=== PATIENT | male | born 1945 | race Caucasian/White ===

== ENCOUNTER 2020-05-19 10:45 | Day surgery (SDC) | payer MEDICARE ==
[~2020-05-19] VITALS: Ht 182.9 cm; Wt 91.6 kg
[~2020-05-19 10:45] MED LIST: ACET325 PO; ACET500 PO; ALBU90OI; ASPI81CH PO; ATOR40TA PO; Aspir 8181 MG PO; Buspirone HCl15 MG PO; CITA20 PO; CLON.1 PO; DOCU100 PO; FURO40 PO; IPRAT-ALBUT 0.5-3 ML; ISOMON20 PO; LEVSOD100 PO; LISI5 PO; Lisinopril-Hct1 EAC4 PO; MELO7.5 PO; METO25 PO; Nitrostat0.3 MG; OXYC5 PO; Omeprazole20 M1 PO; POTCHL10ER PO; Prozac20 MG PO; Prozac40 MG; SIMV10 PO; Synthroid112 MCG PO
== END 2020-05-19 12:50 | disposition home or self-care (01) ==
LOC: ORSCSDS 10:45
PROVIDERS: Internal Medicine Gastroenterology
PROC: 0D5H8ZZ Destruction of Cecum, Via Natural or Artificial Opening Endoscopic (ICD-10-PCS; principal; 2020-05-19 12:00)
PROC: 0D5K8ZZ Destruction of Ascending Colon, Via Natural or Artificial Opening Endoscopic (ICD-10-PCS; principal; 2020-05-19 12:00)
PROC: 0DBN8ZX Excision of Sigmoid Colon, Via Natural or Artificial Opening Endoscopic, Diagnostic (ICD-10-PCS; principal; 2020-05-19 12:00)
PROC: 0DBL8ZX Excision of Transverse Colon, Via Natural or Artificial Opening Endoscopic, Diagnostic (ICD-10-PCS; principal; 2020-05-19 12:00)
DX: K59.00 Constipation, unspecified (principal); D12.5 Benign neoplasm of sigmoid colon; D12.3 Benign neoplasm of transverse colon; Q27.30 Arteriovenous malformation, site unspecified; K57.30 Diverticulosis of large intestine without perforation or abscess without bleeding; K64.8 Other hemorrhoids; I10 Essential (primary) hypertension; I25.10 Atherosclerotic heart disease of native coronary artery without angina pectoris; E03.9 Hypothyroidism, unspecified; N18.9 Chronic kidney disease, unspecified; Z79.899 Other long term (current) drug therapy; Z79.82 Long term (current) use of aspirin; Z87.891 Personal history of nicotine dependence
CPT/HCPCS: 88305; J2704; J7120

== ENCOUNTER 2020-07-12 09:03 | Day surgery (SDC) | payer MEDICARE ==
[~2020-07-12] VITALS: Ht 182.9 cm; Wt 90.0 kg
--- NOTE | 2020-07-12 14:15 | NUR ---
PT BROUGHT TO RECOVERY IN SUPINE POSITION ON GURNEY, LEFT GROIN SITE PREVIOUSLY WITH MANUAL PRESSURE HOLD DUE TO UNSUCCESSFUL ANGIOSEAL. NO ACTIVE EXTERNAL BLEEDING OR OOZING NOTED. DRESSING C/D/I. GROIN APPEARS PUFFY BUT SOFT AND NO PAIN REPORTED. CALL LIGHT IN REACH. WILL CONTINUE TO MONITOR.
--- NOTE | 2020-07-12 14:54 | NUR ---
LEFT GROIN SITE APPEARS TO BE MORE FIRM TO PALPATE, PT TENDER TO TOUCH. NO EXTERNAL BLEEDING NOTED. DRESSING TO ARTERIAL SITE STILL INTACT. FEMSTOP PLACED ON PT AT THIS TIME, PLAN TO MONITOR SITE UNTIL SOFT. SBP AT 100 FEMSTOP PLACED AT 110.
--- NOTE | 2020-07-12 15:05 | NUR ---
FEMSTOP RECHECK COMPLETED, REMAINS IN PLACE, WILL CONTINUE TO MONITOR SITE. PT TOLERATING WITH NO DIFFICULTIES OR C/O PAIN. URINAL USED FOR URINE OUTPUT OF 50 CC, CLEAR YELLOW.
--- NOTE | 2020-07-12 15:15 | NUR ---
FEMSTOP REMOVED FROM LEFT GROIN SITE, SOFT NON TENDER WITH NO SIGNS OF EXTERNAL BLEEDING AT THIS TIME. PT AOX4. DENIES WANTING FOOD OR DRINK, MEAL TRAY PROVIDED ON BEDSIDE TABLE. VSS. CALL LIGHT IN REACH.
--- NOTE | 2020-07-12 16:33 | NUR ---
LEFT GROIN SITE CONTINUES TO FEEL SOFT, NO EXTERNAL BLEEDING OR OOZING NOTED. DRESSING REMAINS C/D/I. PT DENIES PAIN. LEFT DP PULSE +1 LEFT PT DOPPLER AND RIGHT DP/PT BOTH DOPPLER.
--- NOTE | 2020-07-12 17:05 | NUR ---
ASSUMED CARE OF PATIENT. GROIN SITE HAS HEMATOMA THAT CAN BE WORKED OUT.
--- NOTE | 2020-07-12 17:40 | NUR ---
HEMATOMA CONTINUES. SITE ASSESSED BY February. DR. SCHAEFFER NOTIFIED.
--- NOTE | 2020-07-12 17:46 | NUR ---
FEMSTOP APPLIED PER DR. SCHAEFFER'S ORDER,140 MM/HG.
--- NOTE | 2020-07-12 18:13 | NUR ---
SITE IS SOFT. FEMSTOP IS ON AT 130MM/HG.
--- NOTE | 2020-07-12 18:51 | NUR ---
TRANSFERRED TO ICU 7 VIA GURNEY. FEMSTOP OFF WHILE TRANSFERRING TO BED THEN INFLATED TO 130 MM/HG.
--- NOTE | 2020-07-12 18:56 | NUR ---
GROIN SITE SOFT BUT HEMATOMA STARTS WHEN FEMSTOP OFF. RE-APPLIED WITH NO PRESSURE.
--- NOTE | 2020-07-12 21:15 | NUR ---
DOCTOR MAKSIM NOTIFIED OF HYPOTENSION, AND DOPPLER PULSES TO BOTH FEET. FLUID BOLUS AND STAT H&H ORDERED. PATIENT AWAKE WITH NO C/O PAIN, LEFT GROIN SITE SOFT BUT BRUISED.
[2020-07-12 21:46] LABS: Hematocrit 34.5 % (37.0-53.0)
--- NOTE | 2020-07-13 00:41 | NUR ---
DOCTOR MAKSIM IN TO SEE PATIENT, NO CHANGES AT THIS TIME. CONTINUE TO MONITOR
--- NOTE | 2020-07-13 04:29 | NUR ---
REPORT RECEIVED FROM [facility] NURSE, THERESE FREEMAN. PT ADMITTED TO ICU FOR EXTENDED RECOVERY DUE TO INTERMITTENT FEMORAL SITE BLEEDING SECONDARY TO FAILED ANGIOSEAL. PT IN [place]SE [place]. A&O X 4. PMS X 4. LE PULSES VIA DOPPLER. HEENT-NORMOCEPHALIC. LSCTA. ABD SOFT, NON-TENDER. L FEMSTOP IN PLACE c NO PRESSURE. SITE ASSESSED WITH THERESE. NO C/O PAIN CURRENTLY. PT ADVISED TO AVOID GROIN FLEXATION. FREQUENT REMINDERS TO KEEP HEAD ON PILLOW. PT VERBALIZED UNDERSTANDING. FEMORAL SITE WILL BE MONITORED FREQUENTLY.
--- NOTE | 2020-07-13 06:45 | NUR ---
SHIFT SUMMARY A&O X 4. PMS X 4, LE PULSES VIA DOPPLER. L FEMSTOP REMOVED ~2300. GROIN SITE REMAINS SOFT, NO CHANGES TO VISIBLE BRUISING. PT ANXIOUS TO GO HOME.
--- NOTE | 2020-07-13 08:43 | NUR ---
ASSUMED CARE OF PT AT 0700. REPORT FROM SUMAYA FREEMAN. PT RESTING IN BED. A&OX 4. ANSWERS QUESTIONS APPROPRIATELY. DENIES NEEDS. DENIES PAIN. OPSITE c CHG TO LEFT GROIN. SOFT, NON TENDER, ECCHYMOSIS. CAP REFILL <3 SEC TO BILATERAL LOWER EXT. PULSES PAL. VSS. PT PENDING D/C. WILL CONTINUE TO MONITOR.
--- NOTE | 2020-07-13 11:47 | NUR ---
PT D/C'D. VERBALIZED UNDERSTANDING OF D/C INSTRUCTIONS. DRESSING TO LEFT GROIN REMAINED C/D/I. NO FURTHER BRUISING OR SWELLING. ALL BELONGINGS HOME c PT. OTD NAD.
== END 2020-07-13 11:48 | disposition home or self-care (01) ==
LOC: MHTC 09:03 → ICUE 18:04 → MHTC 07-13 11:48
PROVIDERS: Radiology Diagnostic Radiology
DX: I70.213 Atherosclerosis of native arteries of extremities with intermittent claudication, bilateral legs (principal); E78.5 Hyperlipidemia, unspecified; J44.9 Chronic obstructive pulmonary disease, unspecified; I12.9 Hypertensive chronic kidney disease with stage 1 through stage 4 chronic kidney disease, or unspecified chronic kidney disease; N18.9 Chronic kidney disease, unspecified; E66.3 Overweight; E03.9 Hypothyroidism, unspecified; Z68.28 Body mass index [BMI] 28.0-28.9, adult; I65.23 Occlusion and stenosis of bilateral carotid arteries; I25.10 Atherosclerotic heart disease of native coronary artery without angina pectoris; Z95.5 Presence of coronary angioplasty implant and graft; Z87.891 Personal history of nicotine dependence; Z79.82 Long term (current) use of aspirin; Z79.899 Other long term (current) drug therapy
CPT/HCPCS: 36415; 76937; 85014; 85018; 85347; 99152; 99153; A9270-GY; C1714; C1725; C1757; C1760; C1769; C1874; C1884; C1887; C1894; C2623; J1200; J1644; J2250; J3010; J7030; J7040; J7050; Q9967

== ENCOUNTER 2020-07-21 07:37 | Day surgery (SDC) | payer MEDICARE ==
[~2020-07-21] VITALS: Ht 182.9 cm; Wt 92.0 kg
[2020-07-21] MEDS ORDERED: ACET500 PO (08:07)
[2020-07-21] MEDS ORDERED: IPRAT-ALBUT 0.5-3 ML INH (08:09)
--- NOTE | 2020-07-21 12:05 | NUR ---
PT TO RECOVERY ROOM POST PROCEDURE. PT AWAKE AND ORIENTED, CONVERSING APPROPRIATELY; DENIES PAIN POST PROCEDURE. MONITOR SR 60'S, B/P 120/66, SPO2 97-99% RA, AFEBRILE. R GROIN NO SWELLING/HEMATOMA, TEGADERM DRSG INTACT, PERCLOSE DEPLOYED; BLE PULSES 1+.
--- NOTE | 2020-07-21 14:20 | NUR ---
PT'S HOB ELEVATED, SITES UNCHANGED. PT TAKING SIPS OF COFFEE, OFFERED LUNCH TRAY, REPORTS HE'S NOT HUNGRY.
--- NOTE | 2020-07-21 15:05 | NUR ---
PT AMB TO BATHROOM AND VOIDED WITHOUT ISSUE, GAIT STEADY; SITE UNCHANGED.
--- NOTE | 2020-07-21 15:20 | NUR ---
TO DRESSED SELF WITHOUT ISSUE, SITE UNCHANGED; IV REMOVED-CANNULA INTACT. PT RECEIVED DISCHARGE INSTRUCTIONS, MED LIST AND AFTER CARE INSTRUCTIONS; VERBALIZED GOOD UNDERSTANDING.
--- NOTE | 2020-07-21 15:25 | NUR ---
PT LEFT FACILITY VIA W/C, CONDITION STABLE.
== END 2020-07-21 15:25 | disposition home or self-care (01) ==
LOC: MHTC 07:37
DX: I70.213 Atherosclerosis of native arteries of extremities with intermittent claudication, bilateral legs (principal)
CPT/HCPCS: 75710; 85347; 99152; 99153; C1714; C1725; C1757; C1760; C1769; C1884; C1887; C1894; C2623; C9764; C9766; J1644; J2250; J3010; J7030; J7040; J7050; Q9967

== ENCOUNTER 2023-06-25 07:03 | Day surgery (SDC) | payer MEDICARE ==
[~2023-06-25] VITALS: Ht 182.9 cm; Wt 88.5 kg
[2023-06-25] VITALS (11 sets, daily range): BP systolic 118–155; BP diastolic 63–101
[~2023-06-25 07:03] MED LIST changes: +CLOP75 PO; +IPRAT-ALBUT 0.5-3 ML INH; +METO50ER PO
[2023-06-25] MEDS ORDERED: ATOR20 PO (07:50)
[2023-06-25] MEDS ORDERED: LEVSOD112 PO (07:51)
[2023-06-25] MEDS ORDERED: NYSTRIT TOP (07:51)
[2023-06-25] MEDS ORDERED: Prozac40 MG PO (07:51)
--- NOTE | 2023-06-25 11:20 | NUR ---
ASSUMED CARE OF PT POST PROCEDURE. PT AWAKE AND CONVERSING APPROPRIATELY; DENIES PAIN POST PROCEDURE. MONITOR SB/SR 50-60'S, B/P 133/72, SPO2 99-100% RA, AFEBRILE. L GROIN NO SWELLING/HEMATOMA, TEGADERM DRSG INTACT; ANGIO SEAL DEPLOYED, PULSES LLE: DOP X 2, RLE: DP 1+ PT DOP.
--- NOTE | 2023-06-25 12:35 | NUR ---
PT'S HOB ELEVATED, L GROIN SITE REMAINS UNCHANGED.
--- NOTE | 2023-06-25 13:35 | NUR ---
PT AMB TO BATHROOM WITHOUT ISSUE, GAIT STEADY, SITE UNCHANGED.
--- NOTE | 2023-06-25 13:50 | NUR ---
PT DRESSED SELF WITHOUT ISSUE, SITE UNCHANGED; IV REMOVED-CANNULA INTACT.
--- NOTE | 2023-06-25 14:06 | NUR ---
PT RECEIVED DISCHARGE INSTRUCTIONS, MED LIST AND AFTER CARE INSTRUCTIONS; VERBALIZED GOOD UNDERSTANDING. PT LEFT FACILITY VIA W/C, CONDITION STABLE.
== END 2023-06-25 14:06 | disposition home or self-care (01) ==
LOC: MHTC 07:03
DX: I70.223 Atherosclerosis of native arteries of extremities with rest pain, bilateral legs (principal); I65.23 Occlusion and stenosis of bilateral carotid arteries; Z87.891 Personal history of nicotine dependence; I10 Essential (primary) hypertension
CPT/HCPCS: 37228; 75625; 75716; 75774; 76937; 85347; 99152; 99153; C1725; C1760; C1769; C1887; C1894; C9764; C9772; J1644; J2250; J3010; J7030; J7050; Q9967

== ENCOUNTER 2023-08-27 07:03 | Day surgery (SDC) | payer MEDICARE ==
[2023-08-27] VITALS (8 sets, daily range): BP systolic 101–143; BP diastolic 65–82
[~2023-08-27] VITALS: Ht 182.9 cm; Wt 87.1 kg
[~2023-08-27 07:03] MED LIST changes: +ATOR20 PO; +LEVSOD112 PO; +NYSTRIT TOP; +Prozac40 MG PO
--- NOTE | 2023-08-27 09:47 | NUR ---
PATIENT ARRIVED TO RECOVERY ROOM RESTING COMFORTABLY IN BED. HOB FLAT. R GROIN SITE C/D/I SOFT/NONTENDER, NO EVIDNECE OF HEMATOMA. PATIENT DENYING ANY PAIN. VSS ON RA.
--- NOTE | 2023-08-27 12:00 | NUR ---
PT VERBALIZES UNDERSTANDING WRITTEN AND VERBAL INSTRUCTIONS. DENIES QUESTIONS. VSS. NADN. PT R FEMORAL SITE REMAINS CLEAR. NO BLEEDING OR HEMATOMA NOTED. PT AMBULATES TO RESTROOM WITHOUT DIFF. PT DRESSES SELF WITHOUT ASSISTANCE. PT IV DC'D. CATH INTACT. PRESSURE DSG IN PLACE. NO BLEEDING NOTED. PT DC TO HOME VIA WC BY FRIEND.
== END 2023-08-27 12:10 | disposition home or self-care (01) ==
LOC: MHTC 07:03
DX: I70.222 Atherosclerosis of native arteries of extremities with rest pain, left leg (principal); I70.209 Unspecified atherosclerosis of native arteries of extremities, unspecified extremity; M79.605 Pain in left leg; I65.22 Occlusion and stenosis of left carotid artery; I65.21 Occlusion and stenosis of right carotid artery; Z87.891 Personal history of nicotine dependence
CPT/HCPCS: 76937; 85347; 99152; 99153; C1725; C1760; C1769; C1887; C1894; C2623; J1644; J2250; J3010; J7030; J7050; Q9967

== ENCOUNTER → 2024-11-24 | Outpatient (CLI) | payer MEDICARE | LOC: LAB 18:24 → LAB SHORT 18:24 | DX: B35.6 Tinea cruris (principal) | CPT/HCPCS: 87252 ==

== ENCOUNTER 2025-01-28 07:57 | Day surgery (SDC) | payer MEDICARE ==
[~2025-01-28] VITALS: Ht 182.9 cm; Wt 94.0 kg
[2025-01-28] VITALS (7 sets, daily range): BP systolic 102–136; BP diastolic 64–87
[~2025-01-28 07:57] MED LIST changes: +CENTRUM SILVER1 EAC2 PO; +Heparin Sodium 1000 Units/ML 10ML MDV ONE; +NS 1,000 ML IV ONE; +NS 250 ML IV ONE
[2025-01-28] MEDS ORDERED: NS 1,000 ML IV ONE (08:35)
[2025-01-28] MEDS ORDERED: FentaNYL Citrate 50 MCG/ML 2 ML Injection ONE (08:35)
[2025-01-28] MEDS ORDERED: Midazolam HCl 1MG / ML 2ML Vial ONE (08:35)
[2025-01-28] MEDS ORDERED: Clopidogrel Bisulfate 75 MG Tab ONE (08:49)
--- NOTE | 2025-01-28 10:52 | NUR ---
PATIENT RETURNED FROM PROCEDURE EARLIER, SITE RIGHT GROIN INTACT, NO HEMATOMA, NO CONCERNS, GOOD PULSES DISTAL/PROXIMAL TO SITE, DENIES CONCERN, DISCUSS PLAN, LAY FLAT FOR AN HOUR AND COMPLIANT EXCEPT DOES LIFT HEAD FROM PILLOW TO TALK, REMINDERS TO LAY FLAT, KEEP HEAD DOWN. OTHERWISE RESTING, DECLINED FOOD, LIGHTS LOW FOR COMFORT.
--- NOTE | 2025-01-28 11:23 | NUR ---
PATIENT RESTING, BEGAN TO ELEVATE HOB, SITE REMAINS INTACT, NO ACUTE ISSUES OR CONCERNS. VS REAMIN STABLE, BP REMAINS IMPROVED FROM INTRAOP HYPOTENSION CONCERNS, OTHERWISE MONITORING.
--- NOTE | 2025-01-28 12:36 | NUR ---
SITE INTACT, AMBULATED TO RESTROOM, SITE REMAINED INTACT, IV REMOVED, OFF MONITOR, BELONGINGS GATHERED, PATIENT DRESSED. DISCUSSED D/C INSTRUCTIONS AND RESUMING MEDICATIONS, CALLING 9-1-1 IF UNABLE TO CONTROL BLEED, DENIES QUESTIONS/CONCERNS, TAKEN BY WHEELCHAIR TO PATIENT WAIT AREA, FRIEND ON WAY, REQUEST TO SIT THERE, LEFT AT 1230.
== END 2025-01-28 12:30 | disposition home or self-care (01) ==
LOC: MHTC 07:57
DX: I25.810 Atherosclerosis of coronary artery bypass graft(s) without angina pectoris (principal); R94.39 Abnormal result of other cardiovascular function study; I73.9 Peripheral vascular disease, unspecified; J44.9 Chronic obstructive pulmonary disease, unspecified; I10 Essential (primary) hypertension; E78.5 Hyperlipidemia, unspecified; Z79.82 Long term (current) use of aspirin; Z79.899 Other long term (current) drug therapy
CPT/HCPCS: 76937; 93459; 99152; 99153; A9270; C1760; C1769; C1894; J1644; J2250; J3010; J7030; J7050; Q9967

== ENCOUNTER 2025-03-08 13:31 | Day surgery (SDC) | payer MEDICARE ==
[~2025-03-08] VITALS: Ht 182.9 cm; Wt 93.3 kg
[~2025-03-08 13:31] MED LIST changes: +Atropine Sulfate 0.1 MG/ML 10ML SYR ONE; +Glycopyrrolate 0.2 MG/ML 1MLVIAL ONE; -Heparin Sodium 1000 Units/ML 10ML MDV ONE; +Lactated Ringer's 1,000 ML IV ONE; +Lidocaine 2% 5 ML SDV ONE; +Lidocaine HCl/Pf 1% 5 ML VIAL ONE; +Methylene Blue 1% 100 MG/10 ML VIAL ONE; -NS 1,000 ML IV ONE; -NS 250 ML IV ONE; +Ondansetron HCl 2 MG / ML 2ML Vial ONE; +ePHEDrine Sulfate 50 MG/ML 1ML Injection ONE
[2025-03-08] MEDS ORDERED: FAMO20 (14:23)
[2025-03-08] MEDS ORDERED: Benzocaine Oral Spray 0.5ML UD ONE (15:06)
[2025-03-08] MEDS ORDERED: propofoL 20 ML IV ONE (15:06)
[2025-03-08] MEDS ORDERED: propofoL 50 ML IV ONE (15:06)
[2025-03-08] MEDS ORDERED: Lactated Ringer's 1,000 ML IV ONE (15:25)
--- NOTE | 2025-03-08 15:55 | NUR ---
03/08/25 1555 VEE ARRIOLA PER PROVIDER PREFERENCES, A NASAL CANNULA WAS USED DURING THE UPPER ENDOSCOPY AND THEN A POM MASK WAS PLACED PRIOR TO BEGINNING THE COLON OSCOPY
[2025-03-08 16:27] VITALS: BP 103/60
== END 2025-03-08 16:36 | disposition home or self-care (01) ==
LOC: ORSCSDS 13:31
PROVIDERS: Specialist
PROC: 0D758ZZ Dilation of Esophagus, Via Natural or Artificial Opening Endoscopic (ICD-10-PCS; principal; 2025-03-08 15:00)
PROC: 0DB58ZX Excision of Esophagus, Via Natural or Artificial Opening Endoscopic, Diagnostic (ICD-10-PCS; principal; 2025-03-08 15:00)
PROC: 0DB78ZX Excision of Stomach, Pylorus, Via Natural or Artificial Opening Endoscopic, Diagnostic (ICD-10-PCS; principal; 2025-03-08 15:00)
PROC: 0DJD8ZZ Inspection of Lower Intestinal Tract, Via Natural or Artificial Opening Endoscopic (ICD-10-PCS; principal; 2025-03-08 15:00)
DX: K21.9 Gastro-esophageal reflux disease without esophagitis (principal); Z12.11 Encounter for screening for malignant neoplasm of colon; Z86.0101 Personal history of adenomatous and serrated colon polyps; R13.14 Dysphagia, pharyngoesophageal phase; R11.0 Nausea; K22.10 Ulcer of esophagus without bleeding; K44.9 Diaphragmatic hernia without obstruction or gangrene; L53.8 Other specified erythematous conditions; K64.8 Other hemorrhoids; K57.30 Diverticulosis of large intestine without perforation or abscess without bleeding; K55.20 Angiodysplasia of colon without hemorrhage; I25.10 Atherosclerotic heart disease of native coronary artery without angina pectoris; I73.89 Other specified peripheral vascular diseases; Z87.891 Personal history of nicotine dependence; E03.9 Hypothyroidism, unspecified; J44.9 Chronic obstructive pulmonary disease, unspecified; I10 Essential (primary) hypertension; Z79.02 Long term (current) use of antithrombotics/antiplatelets; Z79.82 Long term (current) use of aspirin; Z99.81 Dependence on supplemental oxygen; Z79.899 Other long term (current) drug therapy
CPT/HCPCS: 43248; 43239; G0105; 88305; 88342; A9270; C1769; J0461; J2003; J2405; J2704; J7120; Q9968

== ENCOUNTER 2025-06-23 10:07 | Inpatient (IN) | payer OTHER, MEDICARE ==
[~2025-06-23] VITALS: Ht 182.9 cm; Wt 85.0 kg
[~2025-06-23 10:07] MED LIST changes: -Atropine Sulfate 0.1 MG/ML 10ML SYR ONE; +FAMO20 PO; -Glycopyrrolate 0.2 MG/ML 1MLVIAL ONE; -LEVSOD112 PO; -Lactated Ringer's 1,000 ML IV ONE; -Lidocaine 2% 5 ML SDV ONE; -Lidocaine HCl/Pf 1% 5 ML VIAL ONE; -Methylene Blue 1% 100 MG/10 ML VIAL ONE; -Ondansetron HCl 2 MG / ML 2ML Vial ONE; -ePHEDrine Sulfate 50 MG/ML 1ML Injection ONE
[2025-06-23 10:39] LABS: BASOPHILS ABSOLUTE AUTO 0.05 K/mm3 (0.00-0.23); BASOPHILS PERCENT AUTO 0 % (0-2); EOSINOPHILS ABSOLUTE AUTO 0.55 K/mm3 (0.00-0.68); EOSINOPHILS PERCENT AUTO 4 % (0-6); Hematocrit 34.3 % (37.0-53.0); Hemoglobin 11.4 g/dL (13.5-17.5); IMMATURE GRAN ABSOLUTE AUTO 0.17 K/mm3 (0.00-0.10); IMMATURE GRAN PERCENT AUTO 1 % (0-1); LYMPHOCYTES ABSOLUTE AUTO 1.83 K/mm3 (0.84-5.20); LYMPHOCYTES PERCENT AUTO 12 % (21-46); MONOCYTES ABSOLUTE AUTO 1.05 K/mm3 (0.16-1.47); MONOCYTES PERCENT AUTO 7 % (4-13); Mean Corpuscular HGB Conc 33.2 g/dL (31.5-36.5); Mean Corpuscular Volume 95 fL (80-100); NEUTROPHILS ABSOLUTE AUTO 11.91 K/mm3 (1.96-9.15); NEUTROPHILS PERCENT AUTO 77 % (41-73); NRBC ABSOLUTE 0.00 K/mm3 (0.00-0.02); NRBC Auto 0.0 /100 WBC (0.0-0.2); Platelet Count 326 K/mm3 (150-400); RDW Coefficient Variation 13.2 % (11.7-14.2); RDW Standard Deviation 46.0 fL (35.1-46.3)
[2025-06-23 11:06] LABS: Alanine Aminotransfer (ALT/SGP 84.0 U/L (12-78); Albumin, Blood 2.7 g/dL (3.4-5.0); Albumin/Globulin Ratio 0.5 (0.8-1.8); Anion Gap 14.0 mmol/L (3-11); Aspartate Aminotrans (AST/SGOT 60.0 U/L (12-37); Bilirubin, Total 1.2 mg/dL (0.1-1.0); Blood Urea Nitrogen 28.0 mg/dL (8-24); CO2, Blood 23.0 mmol/L (21-32); Calcium, Blood 9.3 mg/dL (8.5-10.1); Chloride, Blood 104.0 mmol/L (98-108); Creatinine, Blood 1.27 mg/dL (0.60-1.20); Globulin, Blood 5.1 g/dL (2.2-4.0); Glucose, Blood 114.0 mg/dL (70-99); Potassium, Blood 3.6 mmol/L (3.5-5.5); Sodium, Blood 137.0 mmol/L (136-145); Total Protein, Blood 7.8 g/dL (6.4-8.2)
[2025-06-23] MEDS ORDERED: NS 500 ML IV SCH (11:35)
[2025-06-23 15:23] LABS: Anti-Xa UFH, PHA Monitoring <0.10 IU/mL; Prothrombin Time Results 12.7 Sec (9.7-11.5)
[2025-06-23] MEDS ORDERED: Heparin Sodium,Porcine/0.5 NS 500 ML IV SCH (15:35)
[2025-06-23] MEDS ORDERED: Heparin Sodium 5000 Units/ML 1ML MDV IV ONE (15:35)
[2025-06-23 16:15] VITALS: BP 110/64
[2025-06-23] MEDS ORDERED: LATANOPROST2.5 M3 BOTHEYES (16:46)
[2025-06-23] MEDS ORDERED: NYSTATIN15 GM TOP (16:47)
--- NOTE | 2025-06-23 18:57 | NUR ---
SHIFT SUMMARY: PT ARRIVES FROM THE ED A&OX4.FOLLOWS COMMANDS AND ANSWERS QUESTIONS APPROPRIATELY. PT BECAME VERY SOB WHILE CHANGING INTO A GOWN. VSS. DENIES ANY CP, PRESSURE OR TIGHTNESS. HEPARIN GTT RUNNING. DENIES ANY NEEDS. NO SIGNIFICANT EVENTS HAPPENED SINCE ARRIVAL TO THIS UNIT. WILL CONTINUE TO CARE FOR PT TILL END OF SHIFT.
[2025-06-23 20:12] VITALS: BP 112/63
[2025-06-23 23:13] VITALS: BP 117/78
[2025-06-24] MEDS ORDERED: Dose Adjust by Pharmacy XX STA ×2 (01:28→05:51)
[2025-06-24 03:25] VITALS: BP 113/54
--- NOTE | 2025-06-24 04:51 | NUR ---
SHIFT SUMMARY THIS RN ASSUMED CARE OF PATIENT AT 1900. PT A&O X4. ABLE TO MAKE NEEDS KNOWN. [place]. ABLE TO REPOSITION SELF IN BED. USING URINAL AT BEDSIDE. ON RA WITH SPO2 >92%. BP STABLE. LOW GRADE TEMP WITH TEMP MAX OF 99.5. SR ON MONITOR WITH HR 70 S. PT REPORTED HEARTBURN DURING THIS SHIFT AND STATED THAT HE USUALLY TAKES A COUPLE TUMS IN THE MORNING AND ASKED FOR TUMS. THIS RN SPOKE TO MD JULEE MD WITH ORDERS AND GIVEN PER EMAR. PT HAS BEEN NPO SINCE MIDNIGHT FOR STRESS TEST IN AM. BED IN LOWEST POSITION AND CALL LIGHT WITHIN REACH. THIS RN WILL REPORT TO ONCOMING DAYSMSFT RN.
[2025-06-24 05:26] LABS: BASOPHILS ABSOLUTE AUTO 0.03 K/mm3 (0.00-0.23); BASOPHILS PERCENT AUTO 0 % (0-2); EOSINOPHILS ABSOLUTE AUTO 0.53 K/mm3 (0.00-0.68); EOSINOPHILS PERCENT AUTO 6 % (0-6); Hematocrit 29.5 % (37.0-53.0); Hemoglobin 9.7 g/dL (13.5-17.5); IMMATURE GRAN ABSOLUTE AUTO 0.07 K/mm3 (0.00-0.10); IMMATURE GRAN PERCENT AUTO 1 % (0-1); LYMPHOCYTES ABSOLUTE AUTO 1.18 K/mm3 (0.84-5.20); LYMPHOCYTES PERCENT AUTO 13 % (21-46); MONOCYTES ABSOLUTE AUTO 0.84 K/mm3 (0.16-1.47); MONOCYTES PERCENT AUTO 9 % (4-13); Mean Corpuscular HGB Conc 32.9 g/dL (31.5-36.5); Mean Corpuscular Volume 96 fL (80-100); NEUTROPHILS ABSOLUTE AUTO 6.53 K/mm3 (1.96-9.15); NEUTROPHILS PERCENT AUTO 71 % (41-73); NRBC ABSOLUTE 0.00 K/mm3 (0.00-0.02); NRBC Auto 0.0 /100 WBC (0.0-0.2); Platelet Count 231 K/mm3 (150-400); RDW Coefficient Variation 13.3 % (11.7-14.2); RDW Standard Deviation 46.7 fL (35.1-46.3)
[2025-06-24 06:34] LABS: Alanine Aminotransfer (ALT/SGP 71.0 U/L (12-78); Albumin, Blood 2.2 g/dL (3.4-5.0); Albumin/Globulin Ratio 0.5 (0.8-1.8); Anion Gap 13.0 mmol/L (3-11); Aspartate Aminotrans (AST/SGOT 55.0 U/L (12-37); Bilirubin, Total 1.0 mg/dL (0.1-1.0); Blood Urea Nitrogen 30.0 mg/dL (8-24); CO2, Blood 22.0 mmol/L (21-32); Calcium, Blood 8.5 mg/dL (8.5-10.1); Chloride, Blood 106.0 mmol/L (98-108); Creatinine, Blood 0.95 mg/dL (0.60-1.20); Globulin, Blood 4.3 g/dL (2.2-4.0); Glucose, Blood 92.0 mg/dL (70-99); Potassium, Blood 3.7 mmol/L (3.5-5.5); Sodium, Blood 137.0 mmol/L (136-145); Total Protein, Blood 6.5 g/dL (6.4-8.2)
[2025-06-24 07:53] VITALS: BP 108/60
[2025-06-24 11:19] VITALS: BP 101/66
[2025-06-24 15:12] VITALS: BP 125/61
--- NOTE | 2025-06-24 17:36 | NUR ---
End of Shift Pt A&O x4. KOI. VSS. Spo2 > 92% on RA. Monitor showing SR-ST. Pt denying chest pain/discomfort. Pt SBA. First day of stress test complete. Pt anticipating finishing 2nd portion of stress test tomorrow. Heparin gtt infusing per EMAR.
[2025-06-24 20:04] VITALS: BP 112/69
[2025-06-24] MEDS ORDERED: Latanoprost 0.005% Opth Soln 2.5 ML BOTHEYES SCH (21:00)
[2025-06-24 23:31] VITALS: BP 128/73
[2025-06-25 03:51] VITALS: BP 113/57
[2025-06-25 04:08] LABS: BASOPHILS ABSOLUTE AUTO 0.03 K/mm3 (0.00-0.23); BASOPHILS PERCENT AUTO 0 % (0-2); EOSINOPHILS ABSOLUTE AUTO 0.58 K/mm3 (0.00-0.68); EOSINOPHILS PERCENT AUTO 6 % (0-6); Hematocrit 28.9 % (37.0-53.0); Hemoglobin 9.6 g/dL (13.5-17.5); IMMATURE GRAN ABSOLUTE AUTO 0.07 K/mm3 (0.00-0.10); IMMATURE GRAN PERCENT AUTO 1 % (0-1); LYMPHOCYTES ABSOLUTE AUTO 1.17 K/mm3 (0.84-5.20); LYMPHOCYTES PERCENT AUTO 13 % (21-46); MONOCYTES ABSOLUTE AUTO 0.76 K/mm3 (0.16-1.47); MONOCYTES PERCENT AUTO 8 % (4-13); Mean Corpuscular HGB Conc 33.2 g/dL (31.5-36.5); Mean Corpuscular Volume 93 fL (80-100); NEUTROPHILS ABSOLUTE AUTO 6.42 K/mm3 (1.96-9.15); NEUTROPHILS PERCENT AUTO 71 % (41-73); NRBC ABSOLUTE 0.00 K/mm3 (0.00-0.02); NRBC Auto 0.0 /100 WBC (0.0-0.2); Platelet Count 237 K/mm3 (150-400); RDW Coefficient Variation 13.3 % (11.7-14.2); RDW Standard Deviation 45.4 fL (35.1-46.3)
[2025-06-25 04:33] LABS: Alanine Aminotransfer (ALT/SGP 86.0 U/L (12-78); Albumin, Blood 2.3 g/dL (3.4-5.0); Albumin/Globulin Ratio 0.5 (0.8-1.8); Anion Gap 9.0 mmol/L (3-11); Aspartate Aminotrans (AST/SGOT 65.0 U/L (12-37); Bilirubin, Total 1.1 mg/dL (0.1-1.0); Blood Urea Nitrogen 23.0 mg/dL (8-24); CO2, Blood 26.0 mmol/L (21-32); Calcium, Blood 8.7 mg/dL (8.5-10.1); Chloride, Blood 105.0 mmol/L (98-108); Creatinine, Blood 0.98 mg/dL (0.60-1.20); Globulin, Blood 4.3 g/dL (2.2-4.0); Glucose, Blood 109.0 mg/dL (70-99); Potassium, Blood 4.1 mmol/L (3.5-5.5); Sodium, Blood 136.0 mmol/L (136-145); Total Protein, Blood 6.6 g/dL (6.4-8.2)
--- NOTE | 2025-06-25 05:00 | NUR ---
SHIFT SUMMARY THIS RN ASSUMED CARE OF PATIENT AT 1900. PT A&O X4. ABLE TO MAKE NEEDS KNOWN. [place]. ABLE TO REPOSITION SELF IN BED. USING URINAL AT BEDSIDE INDEPENDENTLY. ON RA WITH SPO2 >92%. BP STABLE. AFEBRILE. SR ON MONITOR WITH HR 70S. PT REPORTED HEARTBURN EARLY THIS AM AND WAS MEDICATED PER EMAR WITH TUMS. PT HAS BEEN NPO SINCE MIDNIGHT FOR SECOND PART OF STRESS TEST IN AM. HEP GTT INFUSING PER EMAR. BED IN LOWEST POSITION AND CALL LIGHT WITHIN REACH. THIS RN WILL REPORT TO ONCTUYET DAYSHIFT RN.
[2025-06-25] MEDS ORDERED: Clarify Drug Order XX ONE (06:20)
[2025-06-25 07:05] VITALS: BP 101/62
[2025-06-25 12:09] VITALS: BP 102/88
[2025-06-25] MEDS ORDERED: METO25ER PO (13:06)
[2025-06-25] MEDS ORDERED: LEVSOD75 PO (13:06)
--- NOTE | 2025-06-25 13:34 | NUR ---
Discharge Home Pt A&O x4. VSS. Spo2 > 92% on RA. Monitor showing NSR. Pt denying CP or discomfort. Stress test complete. MD & an employee sponsor or advocate and to pt bedside following stress test. Heparin gtt dc'd per . w/ order for discharge home. Discharge instructions reviewed w/ pt & sent home w/ pt. PIVs removed. Pt taken out in wheelchair w/ belongings @ 6342.
[2025-06-26] MEDS ORDERED: Isosorbide Mononitrate 30 MG TABCR PO SCH (09:00)
== END 2025-06-25 13:20 | disposition home or self-care (01) | DRG 204 ==
LOC: ER 10:07 → PCU 14:05
PROVIDERS: Emergency Medicine; ADMIT Family Medicine
DX: R06.02 Shortness of breath (principal); I21.A1 Myocardial infarction type 2; N17.9 Acute kidney failure, unspecified; I25.10 Atherosclerotic heart disease of native coronary artery without angina pectoris; I95.9 Hypotension, unspecified; Z66 Do not resuscitate; R79.1 Abnormal coagulation profile; R74.01 Elevation of levels of liver transaminase levels; J43.9 Emphysema, unspecified; D72.829 Elevated white blood cell count, unspecified; I07.1 Rheumatic tricuspid insufficiency; D64.9 Anemia, unspecified; I73.9 Peripheral vascular disease, unspecified; E78.5 Hyperlipidemia, unspecified; Z79.02 Long term (current) use of antithrombotics/antiplatelets; Z79.82 Long term (current) use of aspirin; Z79.890 Hormone replacement therapy; Z95.1 Presence of aortocoronary bypass graft; Z87.891 Personal history of nicotine dependence
CPT/HCPCS: 36415; 71046; 71260; 78452; 80053; 83880; 84145; 84439; 84443; 84481; 84484; 85025; 85379; 85520; 85610; 85730; 93005; 93010; 93017; 93306; 94760; 96360-59; 99285-25; A9270; A9500; J0706; J1644; J2785; J7030; Q9967

== ENCOUNTER 2025-07-09 14:18 | Inpatient (IN) | payer MEDICARE ==
[~2025-07-09] VITALS: Ht 182.9 cm; Wt 80.9 kg
[~2025-07-09 14:18] MED LIST changes: +ALBU90OI INH; +ANORO ELLIPTA1 EACH INH; +LATANOPROST2.5 M3 BOTHEYES; +LEVSOD75 PO; +METO25ER PO; +NYSTATIN15 GM TOP; +PRED20 PO
[2025-07-09] MEDS ORDERED: NS 1,000 ML IV ONE (14:32)
[2025-07-09 14:33] LABS: BASOPHILS ABSOLUTE AUTO 0.05 K/mm3 (0.00-0.23); BASOPHILS PERCENT AUTO 0 % (0-2); EOSINOPHILS ABSOLUTE AUTO 0.22 K/mm3 (0.00-0.68); EOSINOPHILS PERCENT AUTO 1 % (0-6); Hematocrit 36.6 % (37.0-53.0); Hemoglobin 11.6 g/dL (13.5-17.5); IMMATURE GRAN ABSOLUTE AUTO 0.38 K/mm3 (0.00-0.10); IMMATURE GRAN PERCENT AUTO 2 % (0-1); LYMPHOCYTES ABSOLUTE AUTO 2.03 K/mm3 (0.84-5.20); LYMPHOCYTES PERCENT AUTO 11 % (21-46); MONOCYTES ABSOLUTE AUTO 1.08 K/mm3 (0.16-1.47); MONOCYTES PERCENT AUTO 6 % (4-13); Mean Corpuscular HGB Conc 31.7 g/dL (31.5-36.5); Mean Corpuscular Volume 96 fL (80-100); NEUTROPHILS ABSOLUTE AUTO 14.36 K/mm3 (1.96-9.15); NEUTROPHILS PERCENT AUTO 79 % (41-73); NRBC ABSOLUTE 0.00 K/mm3 (0.00-0.02); NRBC Auto 0.0 /100 WBC (0.0-0.2); Platelet Count 311 K/mm3 (150-400); RDW Coefficient Variation 14.9 % (11.7-14.2); RDW Standard Deviation 51.8 fL (35.1-46.3)
[2025-07-09] MEDS ORDERED: NS 500 ML IV SCH (14:50)
[2025-07-09 15:11] LABS: Alanine Aminotransfer (ALT/SGP 58.0 U/L (12-78); Albumin, Blood 2.8 g/dL (3.4-5.0); Albumin/Globulin Ratio 0.7 (0.8-1.8); Anion Gap 13.0 mmol/L (3-11); Aspartate Aminotrans (AST/SGOT 27.0 U/L (12-37); Bilirubin, Total 2.0 mg/dL (0.1-1.0); Blood Urea Nitrogen 24.0 mg/dL (8-24); CO2, Blood 21.0 mmol/L (21-32); Calcium, Blood 8.3 mg/dL (8.5-10.1); Chloride, Blood 101.0 mmol/L (98-108); Creatinine, Blood 1.38 mg/dL (0.60-1.20); Globulin, Blood 4.2 g/dL (2.2-4.0); Glucose, Blood 90.0 mg/dL (70-99); Potassium, Blood 4.0 mmol/L (3.5-5.5); Sodium, Blood 131.0 mmol/L (136-145); Total Protein, Blood 7.0 g/dL (6.4-8.2)
[2025-07-09] MEDS ORDERED: NS 1,000 ML IV SCH (16:45)
[2025-07-09] MEDS ORDERED: CefTRIAXone Sodium 1,000 MG in NS 50 ML IV ONE (16:45)
[2025-07-09] MEDS ORDERED: Lactobacil 2-S.Thermo-Bifido 1 1 Cap PO SCH (21:00)
[2025-07-09] MEDS ORDERED: Doxycycline Hyclate 100 MG in Dextrose 5% 250 ML IV SCH (21:00)
[2025-07-09 21:23] VITALS: BP 107/62
--- NOTE | 2025-07-09 22:32 | NUR ---
ARRIVAL TO UNIT REPORT RECEIVED FROM HIGH LIFT MULE OPERATOR AT 2107, PT ARRIVES TO UNIT AT 2117. A/OX4, ON RA, SATS ABOVE 90%. TACHYPNEIC AND SOB WITH ANY EXERTION OR CONVERSATIONS. ABLE TO TRANSFER SELF FROM [facility] TO HOSPITAL BED. ALL BELONGINGS IN PATIENT BELONGING BAG IN ROOM. PT STATES HE LEFT HIS HEARING AIDS, GLASSES, AND DENTURES AT HOME. PT RESTING COMFORTABLY IN BED. USING CALL LIGHT APPROPRIATELY. PT INSTRUCTED TO CALL FOR SBA TO RESTROOM.
[2025-07-09 23:08] VITALS: BP 110/77
[2025-07-09] MEDS ORDERED: Ipratropium/Albuterol SulF 2.5-0.5MG/3 ML Amp INH SCH (23:15)
[2025-07-09] MEDS ORDERED: Albuterol 2.5 MG/3 ML VIAL INH PRN (23:15)
[2025-07-10] VITALS (7 sets, daily range): BP systolic 89–114; BP diastolic 48–63
[2025-07-10 03:34] LABS: BASOPHILS ABSOLUTE AUTO 0.01 K/mm3 (0.00-0.23); BASOPHILS PERCENT AUTO 0 % (0-2); EOSINOPHILS ABSOLUTE AUTO 0.21 K/mm3 (0.00-0.68); EOSINOPHILS PERCENT AUTO 3 % (0-6); Hematocrit 28.5 % (37.0-53.0); Hemoglobin 9.3 g/dL (13.5-17.5); IMMATURE GRAN ABSOLUTE AUTO 0.14 K/mm3 (0.00-0.10); IMMATURE GRAN PERCENT AUTO 2 % (0-1); LYMPHOCYTES ABSOLUTE AUTO 1.27 K/mm3 (0.84-5.20); LYMPHOCYTES PERCENT AUTO 16 % (21-46); MONOCYTES ABSOLUTE AUTO 0.64 K/mm3 (0.16-1.47); MONOCYTES PERCENT AUTO 8 % (4-13); Mean Corpuscular HGB Conc 32.6 g/dL (31.5-36.5); Mean Corpuscular Volume 96 fL (80-100); NEUTROPHILS ABSOLUTE AUTO 5.70 K/mm3 (1.96-9.15); NEUTROPHILS PERCENT AUTO 72 % (41-73); NRBC ABSOLUTE 0.00 K/mm3 (0.00-0.02); NRBC Auto 0.0 /100 WBC (0.0-0.2); Platelet Count 205 K/mm3 (150-400); RDW Coefficient Variation 15.0 % (11.7-14.2); RDW Standard Deviation 51.7 fL (35.1-46.3)
[2025-07-10 03:52] LABS: Alanine Aminotransfer (ALT/SGP 40.0 U/L (12-78); Albumin, Blood 2.2 g/dL (3.4-5.0); Albumin/Globulin Ratio 0.6 (0.8-1.8); Anion Gap 8.0 mmol/L (3-11); Aspartate Aminotrans (AST/SGOT 17.0 U/L (12-37); Bilirubin, Direct 0.5 mg/dL (0.0-0.3); Bilirubin, Indirect 1.0 mg/dL (0.1-0.7); Bilirubin, Total 1.5 mg/dL (0.1-1.0); Blood Urea Nitrogen 20.0 mg/dL (8-24); CO2, Blood 24.0 mmol/L (21-32); Calcium, Blood 7.6 mg/dL (8.5-10.1); Chloride, Blood 108.0 mmol/L (98-108); Creatinine, Blood 1.05 mg/dL (0.60-1.20); Globulin, Blood 3.5 g/dL (2.2-4.0); Glucose, Blood 88.0 mg/dL (70-99); Potassium, Blood 4.1 mmol/L (3.5-5.5); Sodium, Blood 136.0 mmol/L (136-145); Total Protein, Blood 5.7 g/dL (6.4-8.2)
--- NOTE | 2025-07-10 04:43 | NUR ---
SHIFT SUMMARY - A/OX4, VERY PLEASANT, COOPERATIVE WITH CARE, DENIES ANY PAIN. ON ROOM AIR AND SATS ABOVE 90%, ON 1L VIA NC AT TIMES FOR COMFORT. FREQUENT SOB WITH ANY LEVEL OF ACTIVITY OR CONVERSATION. ON CONTINUOUS CARDIAC MONITORING. IN A SINUS RHYTHM, VSS. HE IS CONTINENT OF URINE AND STOOL. PT IS INDEPENDENT IN ROOM, BUT CALLS FOR SBA TO RESTROOM INSTRUCTED. HE LIVES AT HOME ALONE, IS INDEPENDENT FOR ALL ADL'S.
[2025-07-10] MEDS ORDERED: CefTRIAXone Sodium 1,000 MG in NS 100 ML IV SCH (09:00)
[2025-07-10] MEDS ORDERED: Enoxaparin 40 MG/0.4 ML SYR SC SCH (09:00)
--- NOTE | 2025-07-10 16:50 | NUR ---
SHIFT NOTE: PT A/OX4 POLITE AND COOPERATIVE WITH CARE. HE IS ON RA WITH SPO2>90%. HE IS IN NSR WITH NO ACUTE EVENTS ON TELE THIS SHIFT. HIS BPS WERE SOFT BUT SBP HAVE REMAINED >100 SINCE STARTING MIDODRINE PER EMAR. HE USES THE URINAL AT BEDSIDE IND. CALL LIGHT IN REACH, CARE CONTINUES
--- NOTE | 2025-07-10 18:19 | NUR ---
PT REPORTS CONSTIPATION. MD NOTIFIED, BOWEL CARE ORDERED. PT AMBULATED WITH THIS RN TO BATHROOM ON RA. PT REPORTS SOB AND DYSNEA. PT REQUIRES 1.5L NC TO MAINTAIN SPO2>90%.
[2025-07-10] MEDS ORDERED: Polyethylene Glycol 3350 17 gm PO PRN (18:20)
[2025-07-10] MEDS ORDERED: Latanoprost 0.005% Opth Soln 2.5 ML BOTHEYES SCH (21:00)
--- NOTE | 2025-07-11 03:27 | NUR ---
TRANSFER OF CARE/ SHIFT SUMMARY REPORT GIVEN BY THIS RN TO GARDEN LABOURER, NIGEL @ APPROX 0320 PT IS A&O X4 , ABLE TO MAKE NEEDS KNOWN, PT MOVING EXTREMITIES WITH PURPOSE, SBA TO BRP, REPOSITIONING SELF IN BED. CONTINUOUS SPO2, SPO2 GREATER THAN 92% ON 2L O2 VIA NC, LUNGS SOUND CLEAR T/O, PT REPORTS SOB AND STATES ITS ABOUT THE SAME WHAT HE HAS BEEN DEALING WITH. CONTINUOUS TELE MONITORING, SINUS 80-90 S, PULSES PRESENT T/O, PT DENEIS CHEST P/P T/O THIS SHIFT, BP SOFT AND STABLE WITH MAP GREATER THAN 65. BOWEL TONES PRESENT IN ALL 4Q, PT DENIES FEELINGS OF CONSTIPATION OR NAUSEA. CONTINENT, URINE DEL IN COLOR BED LOWEST POSITION, CALL LIGHT IN REACH, AWAITING TO GIVE REPORT TO ONCOMING RN.
[2025-07-11 04:26] LABS: BASOPHILS ABSOLUTE AUTO 0.02 K/mm3 (0.00-0.23); BASOPHILS PERCENT AUTO 0 % (0-2); EOSINOPHILS ABSOLUTE AUTO 0.22 K/mm3 (0.00-0.68); EOSINOPHILS PERCENT AUTO 3 % (0-6); Hematocrit 27.5 % (37.0-53.0); Hemoglobin 9.1 g/dL (13.5-17.5); IMMATURE GRAN ABSOLUTE AUTO 0.10 K/mm3 (0.00-0.10); IMMATURE GRAN PERCENT AUTO 1 % (0-1); LYMPHOCYTES ABSOLUTE AUTO 1.20 K/mm3 (0.84-5.20); LYMPHOCYTES PERCENT AUTO 14 % (21-46); MONOCYTES ABSOLUTE AUTO 0.72 K/mm3 (0.16-1.47); MONOCYTES PERCENT AUTO 9 % (4-13); Mean Corpuscular HGB Conc 33.1 g/dL (31.5-36.5); Mean Corpuscular Volume 95 fL (80-100); NEUTROPHILS ABSOLUTE AUTO 6.23 K/mm3 (1.96-9.15); NEUTROPHILS PERCENT AUTO 73 % (41-73); NRBC ABSOLUTE 0.00 K/mm3 (0.00-0.02); NRBC Auto 0.0 /100 WBC (0.0-0.2); Platelet Count 181 K/mm3 (150-400); RDW Coefficient Variation 15.0 % (11.7-14.2); RDW Standard Deviation 51.6 fL (35.1-46.3)
[2025-07-11 04:44] LABS: Anion Gap 10.0 mmol/L (3-11); Blood Urea Nitrogen 21.0 mg/dL (8-24); CO2, Blood 22.0 mmol/L (21-32); Calcium, Blood 7.8 mg/dL (8.5-10.1); Chloride, Blood 107.0 mmol/L (98-108); Creatinine, Blood 0.94 mg/dL (0.60-1.20); Glucose, Blood 91.0 mg/dL (70-99); Potassium, Blood 3.5 mmol/L (3.5-5.5); Sodium, Blood 135.0 mmol/L (136-145)
--- NOTE | 2025-07-11 05:32 | NUR ---
NURSE NOTE AGREE WITH NURSE NOTE FROM PREVIOUS RN CELIA. NO ACUTE EVENTS SINCE TRANSFER OF CARE, PT IS RESTING IN BED. BED IN LOWEST POSTION, CALL LIGHT IN REACH.
[2025-07-11 08:02] VITALS: BP 108/53
[2025-07-11 09:40] VITALS: BP 84/53
[2025-07-11] MEDS ORDERED: DOCU100 PO (10:09)
[2025-07-11] MEDS ORDERED: MIDODRINE HCL10 M1 PO (10:10)
[2025-07-11] MEDS ORDERED: MIRALAX17 GM PO (10:11)
[2025-07-11 12:18] VITALS: BP 114/64
--- NOTE | 2025-07-11 13:34 | NUR ---
SHIFT SUMMARY: PT A&OX4. FOLLOWS COMMANDS AND MAKES NEEDS KNOWN TO STAFF. PT WAS ABLE UP GET UP, WALK AROUND, AND GET DRESSED ON HIS OWN. PT DOES GET SOB WITH EXERTION BUT RECOVERS WITH REST. DENIES ANY CP, PRESSURE OR TIGHNESS. ONLY REPORTS SOB WITH EXERTION. PT DISCHARGED TO HOME IN NO ACUTE STRESS AT THIS TIME. IV WAS REMOVED WITH CATHHETER INTACT. WRITTEN AND VERBAL DC INSTRUCTIONS WERE GIVEN TO PT AND PT DENIES ANY QUESITONS OR CONCERNS. PT WHEELED OUT VIA WHEELCHAIR WITH SON TO DRIVE HIM HOME.
== END 2025-07-11 13:00 | disposition home or self-care (01) | DRG 315 ==
LOC: ER 14:18 → PCU 16:58
PROVIDERS: Family Medicine; Physician Assistant; ADMIT Internal Medicine
DX: I95.9 Hypotension, unspecified (principal); E87.1 Hypo-osmolality and hyponatremia; N17.9 Acute kidney failure, unspecified; D72.829 Elevated white blood cell count, unspecified; J44.9 Chronic obstructive pulmonary disease, unspecified; D64.9 Anemia, unspecified; I10 Essential (primary) hypertension; Z66 Do not resuscitate; I25.10 Atherosclerotic heart disease of native coronary artery without angina pectoris; E78.5 Hyperlipidemia, unspecified; E03.9 Hypothyroidism, unspecified; R79.1 Abnormal coagulation profile; I73.9 Peripheral vascular disease, unspecified; R94.5 Abnormal results of liver function studies; Z79.890 Hormone replacement therapy; Z79.82 Long term (current) use of aspirin; Z79.02 Long term (current) use of antithrombotics/antiplatelets; Z95.1 Presence of aortocoronary bypass graft; Z99.81 Dependence on supplemental oxygen; Z87.891 Personal history of nicotine dependence
CPT/HCPCS: 36415; 71045; 80048; 80053; 80076; 83605; 83880; 84145; 84484; 85025; 85379; 93005; 93010; 94640; 94664; 94760; 94762; 96360; 99285-25; A9270; J0696; J1650; J7030; J7060